=== PATIENT | male | born 2000 | race Caucasian/White ===

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

== ENCOUNTER 2023-01-27 13:24 | Emergency (ER) | payer OTHER, SELFPAY ==
[2023-01-27 13:30] VITALS: BP 142/86; PULSE 91; RESP 16; TEMP 37.1; O2SAT 100
--- NOTE | 2023-01-27 13:32 | ED.EAR ---
HPI - Ear Problem General Chief complaint: Ear Stated complaint: Rt Ear Irritation Time Seen by Provider: 01/27/23 13:30 Source: patient and RN notes reviewed Mode of arrival: ambulatory Limitations: no limitations History of Present Illness HPI Narrative: 23-year-old male presents with concern for right ear pain for 1 week. He reports he feels like it is clogged. He reports history of your infections. He denies fever, drainage from the ear. He reports allergy symptoms of rhinorrhea nasal congestion. MD Complaint: ear pain Related Data Allergies Allergy/AdvReac Type Severity Reaction Status Date / Time No Known Allergies Allergy Verified 01/27/23 13:28 Review of Systems Review of Systems: CONSTITUTIONAL: Denies malaise, chills, sweats, or fever. EYES: Denies visual changes, redness, or discharge. ENT: Reports rhinorrhea, congestion. Sinus pain, and sore throat. Reports right ear pain CARDIOVASCULAR: Denies chest pain, palpitations, or edema. RESPIRATORY: Denies cough. Denies dyspnea. GASTROINTESTINAL: Denies abdominal pain, nausea, vomiting, diarrhea SKIN: Denies rash or itching. MUSCULOSKELETAL: Denies myalgia. NEUROLOGIC: Denies headache. All systems reviewed & are unremarkable except as noted in HPI and below PMFSH Comments At time of signature, agree with nursing past medical, surgical, social and family history. There is no relevant family history pertinent to the presenting complaint Exam Narrative: GENERAL: Well-appearing, well-nourished, and in no acute distress. HEAD: Normocephalic EYES: PERRLA, conjunctivae clear ENT: Nares clear, turbinates edematous, clear discharge. Mucous membranes moist. TM pearly her with dull light reflex bilaterally; right tragal tenderness with EAC edema, purulent drainage. Oropharynx not erythematous without lesions. Tonsils not enlarged and without exudate, no drooling, no hoarseness, no trismus, uvula midline. NECK: Supple. No lymphadenopathy CHEST: Clear to auscultation, breath sounds equal. No wheezing, rhonchi, rales, or stridor. No respiratory distress, speaks in full sentences. HEART: Regular rate and rhythm. No murmur heard. SKIN: Warm, dry, no rash. NEURO: Alert and oriented x3. PSYCH: Normal mood and affect Course Course Emergency Course: Patient is aware of diagnosis, understands and agrees to treatment plan. Anticipatory guidance given. Patient agrees to follow-up as directed and is aware of reasons to seek care at the emergency department. Portions of this record may have been created with voice recognition software Level of Care: Express Care Visit Vital Signs Vital signs: Vital Signs Temperature 98.7 F 01/27/23 13:30 Pulse Rate 91 01/27/23 13:30 Respiratory Rate 16 01/27/23 13:30 Blood Pressure 142/86 H 01/27/23 13:30 Pulse Oximetry 100 01/27/23 13:30 Oxygen Delivery Room Air 01/27/23 13:30 Temperature 98.7 F 01/27/23 13:30 Pulse Rate 91 01/27/23 13:30 Respiratory Rate 16 01/27/23 13:30 Blood Pressure 142/86 H 01/27/23 13:30 Pulse Oximetry 100 01/27/23 13:30 Oxygen Delivery Room Air 01/27/23 13:30 Reviewed. Medical Decision Making MDM Narrative Medical decision making narrative: Differential diagnosis considered: Solomon virus, strep pharyngitis, allergic rhinitis, upper respiratory tract infection, sinusitis, rhinosinusitis, nasopharyngitis. viral pharyngitis, otitis media, otitis externa, otitis effusion, cerumen impaction, foreign body. Exam findings show no acute concerns or changes; patient is non-toxic appearing and is in no distress. Patient is appropriate for outpatient treatment and follow-up. Vital Signs Vital Signs: Vital Signs Temperature 98.7 F 01/27/23 13:30 Pulse Rate 91 01/27/23 13:30 Respiratory Rate 16 01/27/23 13:30 Blood Pressure 142/86 H 01/27/23 13:30 Pulse Oximetry 100 01/27/23 13:30 Oxygen Delivery Room Air 01/27/23 13:30 Temperature 98.7 F
== END 2023-01-27 13:40 | disposition home or self-care (01) ==
PROVIDERS: Emergency Provider Nurse Practitioner
DX: H60.91 Unspecified otitis externa, right ear (principal)
CPT/HCPCS: 99213; G0463